=== PATIENT | female | born 1975 | race Caucasian/White ===

== ENCOUNTER 2016-11-11 17:54 | Observation (INO) | payer MEDICAID ==
[2016-11-11] VITALS (9 sets, daily range): BP systolic 155–198; BP diastolic 83–112; PULSE 85–108; RESP 17–18; TEMP 98.1–98.2; O2SAT 98–100
[~2016-11-11] VITALS: Ht 167.6 cm; Wt 106.5 kg
[~2016-11-11 17:54] MED LIST: AMLO5TAB96 PO; BISA5TAB PO; FLOVENT110 MCG/A INH; GLUCTAB PO; GLYB1TAB51 PO; IBUP800T23 PO; LEVA500T33 PO; PRED10PA PO; SYNT25TA PO; THEO200T11 PO; [UNRECOGNIZED DRUG - REMARK] PO
[2016-11-11 18:13] LABS: MEAN CORPUSCULAR HGB CONC 29.1 % (32.0-36.0)
--- NOTE | 2016-11-11 18:32 | PD ---
HPI Chief Complaint: Cardiac Complaint Time Seen by Provider: 18:27 Travel History International Travel<30 days: No Contact w/Intl Traveler<30days: No Traveled to known affect area: No History of Present Illness HPI 41-year-old female presents to the emergency department for evaluation of headache, blurred vision, nausea that started approximately 2 months ago. However, she states has been worse for the past 3-4 days. She also reports palpitations and chest tightness has been intermittent for several years, but worsening lately. She states this is worst at night when she lays down. She states last time she had it was in her left chest last night. She had no radiation of the pain at that time. She does report associated shortness of breath. Patient states the last time she felt like this she needed a blood transfusion. She states her hemoglobin was 5.6 and 2013. She states they were unable to find source of bleeding. She states 2 years ago she had her hemoglobin checked8.6. She denies it being checked since. She denies any fevers. She does report nausea, no vomiting or diarrhea. Patient denies any blood in her stool. She does report a history of a tubal ligation and a cyst on her ovary being removed. She has a past medical history of anemia, diabetes , hypertension, hypothyroidism, vitamin D deficiency. She is not currently on any medications. She denies any cough, tobacco, drug use. She denies any recent surgeries or travel. No leg edema. No hemoptysis. She is not currently on control. She denies a history DVT/PE. FORMERLY [facility] Past Medical History Cardiovascular Problems: No Diabetes: Yes (type 2 ) Genitourinary: No Musculoskeletal: No Neurologic: No Reproductive: No Respiratory: No ?: Not LMP: 11/16/2016 Past Surgical History Gynecologic Surgery: Yes Social History Alcohol Use: No Tobacco Use: No Substance Use: No Allergies-Medications (Allergen,Severity, Reaction): Coded Allergies: No Known Allergies (Unverified , 11/11/16) Reported Meds & Prescriptions Reported Meds & Active Scripts Active No Active Prescriptions or Reported Medications Review of Systems Except as stated in HPI: all other systems reviewed are Neg Physical Exam Narrative GENERAL: Well-nourished, well-developed female patient, ambulatory. Afebrile. SKIN: Focused skin assessment warm/dry. HEAD: Normocephalic. Atraumatic. EYES: No scleral icterus. No injection or drainage. NECK: Supple, trachea midline. No JVD or lymphadenopathy. CARDIOVASCULAR: Regular rate and rhythm without murmurs, gallops, or rubs. Bilateral radial and pedal pulses 2+. RESPIRATORY: Breath sounds equal bilaterally. No accessory muscle use. Lungs sounds are clear to auscultation. GASTROINTESTINAL: Abdomen soft, non-tender, nondistended. No abdominal pain to palpation. MUSCULOSKELETAL: No cyanosis, or edema. BACK: Nontender without obvious deformity. No CVA tenderness. RECTAL EXAM: No masses or tenderness, stool is brown. Hemoccult is negative. This was done with RN at bedside. Data Data Last Documented VS Vital Signs Date Time Temp Pulse Resp B/P Pulse Ox O2 Delivery O2 Flow Rate FiO2 11/11/16 19:12 90 18 165/92 98 Room Air 11/11/16 17:56 98.2 Orders Electrocardiogram (11/11/16 18:11) Complete Blood Count With Diff (11/11/16 18:11) Chest, Single Ap (11/11/16 18:11) Iv Access Insert/Monitor (11/11/16 18:11) Ecg Monitoring (11/11/16 18:11) Oxygen Administration (11/11/16 18:11) Oximetry (11/11/16 18:11) Magnesium (Mg) (11/11/16 18:25) Type And Screen (11/11/16 18:25) Act Partial Throm Time (Ptt) (11/11/16 18:25) Prothrombin Time / Inr (Pt) (11/11/16 18:25) Ct Brain W/O Iv Contrast(Rout) (11/11/16 ) Basic Metabolic Panel (Bmp) (11/11/16 18:35) Ckmb (Isoenzyme) Profile (11/11/16 18:35) Troponin I (11/11/16 18:35) Red Blood Cells (Rbc) (11/11/16 20:07) Blood Product Administration .UPON TRANSFUSION (11/11/16 20:07) Sodium Chlor 0.9% 250 Ml Inj (Ns 250 Ml (11/11/16 20:15) Vital Signs (Adult) CHUCKY.Q4H (11/11/16 20:35) Iron/Tibc Profile (11/11/16 20:35) Ferritin (4/6/17 20:35) Diet 1800 Ada Cons Carb (11/12/16 Breakfast) Blood Glucose Goal (Criteria) (11/11/16 20:35) Hypoglycemia 51 - 69 Mg/Dl (11/11/16 20:35) Hypoglycemia 50 Mg/Dl Or < (11/11/16 20:35) Notify Dr: Other (11/11/16 20:35) Dextrose 50% In Orion (Vial) Inj (D50w (Vi (11/11/16 20:45) Glucagon Inj (Glucagon Inj) (11/11/16 20:45) Low Novolog Scale (11/11/16 21:00) Hemoglobin (Hgb) (11/12/16 06:00) Hematocrit (Hct) (11/12/16 06:00) Labs Laboratory Tests Test 11/11/16 11/11/16 11/11/16 18:35 18:45 20:07 Prothrombin Time 11.1 SEC Prothromb Time International 1.0 RATIO Ratio Activated Partial 25.9 SEC Thromboplast Time Sodium Level 138 MEQ/L Potassium Level 3.9 MEQ/L Chloride Level 103 MEQ/L Carbon Dioxide Level 27.0 MEQ/L Anion Gap 8 MEQ/L Blood Urea Nitrogen 8 MG/DL Creatinine 0.77 MG/DL Estimat Glomerular Filtration 82 ML/MIN Rate Random Glucose 237 MG/DL Calcium Level 8.5 MG/DL Magnesium Level 1.6 MG/DL Total Creatine Kinase 63 U/L Troponin I LESS THAN 0.02 NG/ML Blood Type O POSITIVE Antibody Screen NEGATIVE Blood Bank Comment White Blood Count 7.3 TH/MM3 Red Blood Count 4.20 MIL/MM3 Hemoglobin 7.2 GM/DL Hematocrit 24.7 % Mean Corpuscular Volume 58.8 FL Mean Corpuscular Hemoglobin 17.1 PG Mean Corpuscular Hemoglobin 29.1 % Concent Red Cell Distribution Width 21.3 % Platelet Count 492 TH/MM3 Mean Platelet Volume 7.7 FL Neutrophils (%) (Auto) 71.3 % Lymphocytes (%) (Auto) 19.0 % Monocytes (%) (Auto) 6.7 % Eosinophils (%) (Auto) 2.5 % Basophils (%) (Auto) 0.5 % Neutrophils # (Auto) 5.2 TH/MM3 Lymphocytes # (Auto) 1.4 TH/MM3 Monocytes # (Auto) 0.5 TH/MM3 Eosinophils # (Auto) 0.2 TH/MM3 Basophils # (Auto) 0.0 TH/MM3 CBC Comment AUTO DIFF Crossmatch Leukocyte-Reduced Red Blood Cells MDM Medical Decision Making Medical Screen Exam Complete: Yes Emergency Medical Condition: Yes Medical Record Reviewed: Yes Interpretation(s) Last Impressions Chest X-Ray 11/11/16 1811 Signed Impressions: Service Date/Time: November 18:54 - CONCLUSION: No acute cardiopulmonary disease. Elver Sorto MD Head CT 11/11/16 0000 Signed Impressions: Service Date/Time: , November 11, 2016 18:56 - CONCLUSION: Unremarkable study. Elver Sorto MD Differential Diagnosis Anemia versus migraine headache versus tension type headache versus intracranial abnormality versus anxiety versus electrolyte abnormality versus ACS Narrative Course 41-year-old female presents to the emergency department for evaluation of headache, blurred vision, nausea for several months, but worsening over the past 3-4 days as well as palpitations and tightness in of intermittent for years. Patient is concerned that she may be anemic any blood transfusion due to a history of this. EKG, CBC, BMP, CK, troponin, magnesium, PTT, PTT/INR, type and screen are ordered and pending. Chest x-ray and CT of the brain are ordered and pending. EKG shows sinus rhythm, heart rate 97. CBC shows anemia with hemoglobin 7.2, hematocrit 24.7. BMP shows no acute abnormality. Magnesium is 1.6. CK 63. Troponin is less than 0.02. Coags are unremarkable. Chest x-ray shows no acute cardiopulmonary disease. CT of the brain is unremarkable. Patient will be admitted for 23 observation for symptomatic anemia. Hemoccult is negative. Patient will be given 1 unit PRBCs. Residents are paged for admission. Dr. Jensen accepted admission. [facility] Point of Care Internal Pos. & Neg. Controls: Passed Fecal Specimen Occult Blood: Negative Diagnosis Primary Impression: Symptomatic anemia Admitting Information Admitting Physician Requests: Observation Scripts No Active Prescriptions or Reported Meds Mary Ambrose Nov 11, 2016 18:32
[2016-11-11 19:12] LABS: APTT (PATIENT) 25.9 SEC (24.3-30.1); MAGNESIUM 1.6 MG/DL (1.5-2.5); PROTHROMBIN TIME - PATIENT 11.1 SEC (9.8-11.6)
[2016-11-11 19:20] LABS: ANION GAP 8 MEQ/L (5-15); BLOOD UREA NITROGEN 8 MG/DL (7-18); CHLORIDE 103 MEQ/L (98-107); GLOMERULAR FILTRATION RATE 82 ML/MIN (>89); POTASSIUM 3.9 MEQ/L (3.5-5.1); SODIUM (NA) 138 MEQ/L (136-145)
[2016-11-11 19:24] LABS: CREATINE KINASE 63 U/L (26-192)
[2016-11-11 19:32] LABS: AUTOMATED NEUTROPHIL # 5.2 TH/MM3 (1.8-7.7); BASOPHIL % 0.5 % (0.0-2.0); EOSINOPHIL # 0.2 TH/MM3 (0-0.4); EOSINOPHIL % 2.5 % (0.0-4.0); HEMATOCRIT 24.7 % (35.0-46.0); LYMPHOCYTE # 1.4 TH/MM3 (1.0-4.8); MEAN CELL VOLUME 58.8 FL (80.0-100.0); MEAN CORPUSCULAR HEMOGLOBIN 17.1 PG (27.0-34.0); MONO % 6.7 % (0.0-8.0); NEUT % 71.3 % (16.0-70.0); PLATELET COUNT 492 TH/MM3 (150-450); RED CELL DISTRIBUTION WIDTH 21.3 % (11.6-17.2); WHITE BLOOD COUNT 7.3 TH/MM3 (4.0-11.0)
--- NOTE | 2016-11-11 19:47 | RADRPT ---
EXAM DATE/TIME: 11/11/2016 18:56 [facility] COMPARISON: No previous studies available for comparison. INDICATIONS : Cephalgia. RADIATION DOSE: 46.82 CTDIvol (mGy) MEDICAL HISTORY : Diabetes mellitus type 2. SURGICAL HISTORY : None. ENCOUNTER: Initial ACUITY: 2 weeks PAIN SCALE: 8/10 LOCATION: cranial TECHNIQUE: Multiple contiguous axial images were obtained of the head. Using automated exposure control and adj ustment of the mA and/or kV according to patient size, radiation dose was kept as low as reasonably a chievable to obtain optimal diagnostic quality images. FINDINGS: There is no evidence for intracranial hemorrhage, mass effect, mass lesions, edema, or extra-axial fl uid collections. The visualized bony structures appear intact. The ventricles are normal size for t he patient's age. There are no signs of acute infarction for technique. CONCLUSION: Unremarkable study. Elver Sorto MD on November 11, 2016 at 19:45 Board Certified Radiologist. This report was verified electronically.
[2016-11-11 19:52] LABS: HEMO FLAGS AUTO DIFF
--- NOTE | 2016-11-11 20:03 | RADRPT ---
EXAM DATE/TIME: 11/11/2016 18:54 [facility] COMPARISON: No previous studies available for comparison. INDICATIONS : Short of breath. MEDICAL HISTORY : None. SURGICAL HISTORY : None. ENCOUNTER: Initial ACUITY: 1 month PAIN SCORE: 0/10 LOCATION: Bilateral chest FINDINGS: The lungs are clear without infiltrate, nodule, or mass. There is no appreciable pleural effusion fo r technique. Heart and mediastinum are unremarkable. CONCLUSION: No acute cardiopulmonary disease. Elver Sorto MD on November 11, 2016 at 20:01 Board Certified Radiologist. This report was verified electronically.
[2016-11-11] MEDS ORDERED: SODIUM CHLOR 0.9% 250 ML INJ 250 ML IV ONE (20:15)
[2016-11-11] MEDS ORDERED: DEXTROSE 50% IN WATER 50 ML VIAL(D50) IV PUSH PRN (20:45)
[2016-11-11] MEDS ORDERED: GLUCAGON 1 MG/ML VIAL OTHER PRN (20:45)
[2016-11-11 21:28] LABS: TEARDROP RBCS 2+ (NORMAL)
[2016-11-11 21:29] LABS: OVALOCYTES 1+ (NORMAL)
[2016-11-11 21:30] LABS: KERATOCYTES OCC (NORMAL); TARGET CELLS 1+ (NORMAL)
[2016-11-11 21:31] LABS: PLATELET ESTIMATE SMEAR HIGH (NORMAL); PLATELET MORPHOLOGY NORMAL (NORMAL); SCAN/DIFF AUTO DIFF CONFIRMED
[2016-11-11 21:36] LABS: FERRITIN 2 NG/ML (8-252); TRANSFERRIN IRON PROFILE 393 MG/DL (200-360)
[2016-11-11] MEDS: INSULIN ASPART SUPPLEMENTAL SCALE SQ SCH (21:47)
--- NOTE | 2016-11-12 01:38 | HHI.HP ---
[facility] Unknown Admission Diagnosis symptomatic anemia Diagnoses: (1) Symptomatic anemia Diagnosis: Principal Chief Complaint: fatigue Travel History International Travel<30 Days: No Contact w/Intl Traveler <30 Da: No Traveled to Known Affected Are: No History of Present Illness patient is a 41 y/o female with history of anemia who presented to ER with fatigue. she says that she's been getting tired easily and it seems that it's getting worse. she's complaining of exertional dyspnea and on and off palpitations. she says that she has craving for ice. she has a history of anemia and had blood transfusion few years ago. she says that she has irregular periods although she's not having heavy bleeding each time.she denies any rectal bleed or black stools. she says that she's in the process of seeing a construction director. of note the patient has a history of diabetes and hypertension but currently not taking any medications. Review of Systems Constitutional: COMPLAINS OF: Fatigue, DENIES: Fever, Weight loss, Chills, Night Sweats Eyes: DENIES: Blurred vision, Diplopia, Vision loss, Double Vision Ears, nose, mouth, throat: DENIES: Tinnitus, Vertigo, Throat pain, Epistaxis Respiratory: DENIES: Apneas, Cough, Snoring, Wheezing, Hemoptysis, Sputum production, Shortness of breath Cardiovascular: COMPLAINS OF: Palpitations, Dyspnea on Exertion, DENIES: Chest pain, Syncope, PND, Lower Extremity Edema, Orthopnea, Claudication Gastrointestinal: DENIES: Abdominal pain, Black stools, Bloody stools, Constipation, Diarrhea, Nausea, Vomiting, Difficulty Swallowing, Anorexia Genitourinary: DENIES: Urinary frequency, Urgency, Hematuria, Dysuria Musculoskeletal: DENIES: Joint pain, Muscle aches, Stiffness, Joint Swelling Integumentary: DENIES: Rash Neurologic: DENIES: Abnormal gait, Headache, Localized weakness, Paresthesias, Seizures, Speech Problems, Tremor, Poor Balance Psychiatric: DENIES: Anxiety, Confusion, Mood changes, Depression, Hallucinations, Agitation, Suicidal Ideation, Homicidal Ideation, Delusions Past Family Social History Past Medical History anemia hypertension diabetes mellitus hypothyroidism Past Surgical History tubal ligation Reported Medications none Allergies: Coded Allergies: No Known Allergies (Unverified , 11/11/16) Active Ordered Medications Current Medications Sodium Chloride (NS 250 ml Inj) 250 ml @ 15 mls/hr ONCE ONCE IV Last administered on 11/11/16 22:21; Start 11/11/16 at 20:15; Stop 11/12/16 at 12:54 Dextrose (D50w (Vial) Inj) 25 ml UNSCH PRN IV PUSH HYPOGLYCEMIA-SEE COMMENTS; Start 11/11/16 at 20:45 Glucagon (Glucagon Inj) 1 mg UNSCH PRN OTHER HYPOGLYCEMIA-SEE COMMENTS; Start 11/11/16 at 20:45 Insulin Aspart (NovoLOG SUPPLEMENTAL SCALE) 1 ACHS SLIDING SCALE SQ Last administered on 11/11/16 21:47; Start 11/11/16 at 21:00 Family History diabetes. Social History no smoking or drinking. Physical Exam Vital Signs Vital Signs Date Time Temp Pulse Resp B/P Pulse Ox O2 Delivery O2 Flow Rate FiO2 11/11/16 23:30 98.2 89 17 155/96 98 Room Air 11/11/16 23:05 98.1 85 18 173/94 99 Room Air 11/11/16 22:45 98.2 90 18 161/89 100 Room Air 11/11/16 22:32 98.1 93 18 162/87 98 Room Air 11/11/16 22:25 89 18 181/83 99 Room Air 11/11/16 22:15 98.1 90 18 187/97 98 Room Air 11/11/16 19:12 90 18 165/92 98 Room Air 11/11/16 18:30 102 18 174/112 99 Room Air 11/11/16 18:20 96 18 100 Room Air 11/11/16 17:56 98.2 108 17 198/105 98 Physical Exam GENERAL: This is a well-nourished, well-developed patient, in no apparent distress. SKIN: No rashes, ecchymoses or lesions. Cool and dry. HEAD: Atraumatic. Normocephalic. No temporal or scalp tenderness. EYES: Pupils equal round and reactive. Extraocular motions intact. No scleral icterus. No injection or drainage. ENT: Nose without bleeding, purulent drainage or septal hematoma. Throat without erythema, tonsillar hypertrophy or exudate. Uvula midline. Airway patent. NECK: Trachea midline. No JVD or lymphadenopathy. Supple, nontender, no meningeal signs. CARDIOVASCULAR: Regular rate and rhythm without murmurs, gallops, or rubs. RESPIRATORY: Clear to auscultation. Breath sounds equal bilaterally. No wheezes , rales, or rhonchi. GASTROINTESTINAL: Abdomen soft, non-tender, nondistended. No hepato-splenomegaly , or palpable masses. No guarding. MUSCULOSKELETAL: Extremities without clubbing, cyanosis, or edema. No joint tenderness, effusion, or edema noted. No calf tenderness. Negative Homans sign bilaterally. NEUROLOGICAL: Awake and alert. Cranial nerves II through XII intact. Motor and sensory grossly within normal limits. Five out of 5 muscle strength in all muscle groups. Normal speech. Laboratory Laboratory Tests Test 11/11/16 11/11/16 11/11/16 11/11/16 18:35 18:45 20:07 20:15 Prothrombin Time 11.1 Prothromb Time International 1.0 Ratio Activated Partial 25.9 Thromboplast Time Sodium Level 138 Potassium Level 3.9 Chloride Level 103 Carbon Dioxide Level 27.0 Anion Gap 8 Blood Urea Nitrogen 8 Creatinine 0.77 Estimat Glomerular Filtration 82 Rate Random Glucose 237 Calcium Level 8.5 Magnesium Level 1.6 Iron Level 14 Total Iron Binding Capacity 550 Percent Iron Saturation 2.5 Ferritin 2 Total Creatine Kinase 63 Troponin I LESS THAN 0.02 Blood Type O POSITIVE O POSITIVE Antibody Screen NEGATIVE Blood Bank Comment White Blood Count 7.3 Red Blood Count 4.20 Hemoglobin 7.2 Hematocrit 24.7 Mean Corpuscular Volume 58.8 Mean Corpuscular Hemoglobin 17.1 Mean Corpuscular Hemoglobin 29.1 Concent Red Cell Distribution Width 21.3 Platelet Count 492 Mean Platelet Volume 7.7 Neutrophils (%) (Auto) 71.3 Lymphocytes (%) (Auto) 19.0 Monocytes (%) (Auto) 6.7 Eosinophils (%) (Auto) 2.5 Basophils (%) (Auto) 0.5 Neutrophils # (Auto) 5.2 Lymphocytes # (Auto) 1.4 Monocytes # (Auto) 0.5 Eosinophils # (Auto) 0.2 Basophils # (Auto) 0.0 CBC Comment AUTO DIFF Differential Comment AUTO DIFF CONFIRMED Platelet Estimate HIGH Platelet Morphology Comment NORMAL Target Cells 1+ Tear Drop Cells 2+ Ovalocytes 1+ Keratocytes OCC Crossmatch Leukocyte-Reduced Red Blood Cells Result Diagram: 11/11/16 1845 11/11/16 1835 Imaging Last Impressions Chest X-Ray 11/11/16 1811 Signed Impressions: Service Date/Time: November 18:54 - CONCLUSION: No acute cardiopulmonary disease. Elver Sorto MD Head CT 11/11/16 0000 Signed Impressions: Service Date/Time: November 18:56 - CONCLUSION: Unremarkable study. Elver Sorto MD Assessment and Plan Assessment and Plan A/P - symptomatic anemia; iron deficiency due to abnormal uterine bleeding PRBC transfusion in process- will repeat H/H post transfusion and start on ferrous sulfate- f/u with [employer] as outpatient -diabetes mellitus; accu-check with SSI- will consider starting metformin upon discharge -hypertension; start lisinopril - f/u as outpatient with PCP -hypothyroidism; f/u as outpatient -DVT prophylaxis with SCD's Discussed Condition With ER and the patient. Jhonathan Durham MD Nov 12, 2016 01:38
[2016-11-12 02:45] VITALS: BP 157/81; PULSE 94; RESP 18; TEMP 98.4; O2SAT 95
[2016-11-12] MEDS: INSULIN ASPART SUPPLEMENTAL SCALE SQ SCH (06:22)
[2016-11-12 07:05] LABS: HEMATOCRIT 25.3 % (35.0-46.0)
[2016-11-12 08:28] VITALS: BP 174/96; PULSE 92; RESP 18; TEMP 97.7; O2SAT 94
--- NOTE | 2016-11-12 08:38 | HHI.PR ---
Subjective Remarks Follow up for anemia. The patient states she came to the hospital because she was feeling fatigued, weak, shortness of breath for the past week now. She reports ice craving for many years now. Today s/p transfusion she is feeling better. She recently had an appointment with after school program teacher Dr. Jennings on 11/08 however this was cancelled because she hasn't seen a PCP. Objective Vitals Vital Signs Date Time Temp Pulse Resp B/P Pulse Ox O2 Delivery O2 Flow Rate FiO2 11/12/16 08:28 97.7 92 18 174/96 94 11/12/16 02:45 98.4 94 18 157/81 95 11/12/16 02:45 98.4 94 18 157/81 95 11/11/16 23:30 98.2 89 17 155/96 98 Room Air 11/11/16 23:05 98.1 85 18 173/94 99 Room Air 11/11/16 22:45 98.2 90 18 161/89 100 Room Air 11/11/16 22:32 98.1 93 18 162/87 98 Room Air 11/11/16 22:25 89 18 181/83 99 Room Air 11/11/16 22:15 98.1 90 18 187/97 98 Room Air 11/11/16 19:12 90 18 165/92 98 Room Air 11/11/16 18:30 102 18 174/112 99 Room Air 11/11/16 18:20 96 18 100 Room Air 11/11/16 17:56 98.2 108 17 198/105 98 Result Diagram: 11/12/16 0612 11/11/16 1835 Imaging Last Impressions Chest X-Ray 11/11/16 1811 Signed Impressions: Service Date/Time: November 18:54 - CONCLUSION: No acute cardiopulmonary disease. Elver Sorto MD Head CT 11/11/16 0000 Signed Impressions: Service Date/Time: November 18:56 - CONCLUSION: Unremarkable study. Elver Sorto MD Objective Remarks GENERAL: Well-nourished, well-developed obese female patient in [facility]. SKIN: Warm and dry. No rash. HEENT: Normocephalic. Atraumatic. Pupils equal and round. No scleral icterus. No injection or drainage. Mucous membranes pink and moist. NECK: Supple. Trachea midline. CARDIOVASCULAR: Regular rate and rhythm. S1, S2 noted. No murmur appreciated. RESPIRATORY: No accessory muscle use. Clear to auscultation. Breath sounds equal bilaterally. GASTROINTESTINAL: Abdomen soft, non-tender, nondistended. Normoactive bowel sounds x4. MUSCULOSKELETAL: No obvious deformities. Extremities without clubbing, cyanosis , or edema. NEUROLOGICAL: Awake and alert. No obvious cranial nerve deficits. Motor grossly within normal limits. Normal speech. PSYCHIATRIC: Appropriate mood and affect; insight and judgment normal. Medications and IVs Current Medications Medications (Trade) Dose Ordered Sig/Reginaldo Route Start Time Stop Time Status Last Admin (NS 250 ml Inj) 250 ml @ 15 mls/hr ONCE ONCE IV 11/11/16 20:15 11/12/16 12:54 11/11/16 22:21 (D50w (Vial) Inj) 25 ml UNSCH PRN IV PUSH 11/11/16 20:45 (Glucagon Inj) 1 mg UNSCH PRN OTHER 11/11/16 20:45 (Prinivil) 5 mg DAILY PO 11/12/16 09:00 (Ferrous Sulfate) 325 mg BID PO 11/12/16 09:00 Urinary Catheter: No Vascular Central Line Catheter: No A/P Problem List: (1) Symptomatic anemia ICD Code: D64.9 Status: Acute Assessment and Plan 41-year-old female with: - symptomatic anemia: iron deficiency due to abnormal uterine bleeding. Hgb 7.2 upon arrival. Iron studies consistent with severe iron deficiency. S/p 1u PRBC transfusion. Repeat Hgb 8.0. Started on ferrous sulfate tid, counselled on taking with Vitamin C and stool softeners. Follow up with [facility] and hematology as outpatient. Discussed extensively with the patient on obtaining outpatient f/ups , she has had difficulty with her insurance, discussed over the phone with the patient's [id number] who works for [employer], will try to get f/up with Dr. Lackey. Likely needs outpatient IV Venofer infusions. Patient feeling better, stable for discharge. -diabetes mellitus; accu-check with SSI- started metformin 500mg po bidpc upon discharge. Check HgbA1c. -hypertension: start lisinopril 10mg daily and Norvasc 5mg daily - f/u as outpatient with PCP. -hypothyroidism: f/u as outpatient with PCP -DVT prophylaxis with SCD's Written by Anahi Morocho, acting as scribe for Dr. Onofre on 11/12/16 at 09:56. All or portions of this note were transcribed by IMER Hernandez. I , Dr. David Onofre personally performed the history, physical exam, and medical decision making; and confirmed the accuracy of the information in the transcribed note. Authenticated by Dr. David Onofre on 11/12/16 at 23:55. Discharge Planning Discharge patient to home Condition on discharge: Improved Heart Healthy Diet as tolerated Ad Ann-Marie activity Rx written: ferrous sulfate tid, lisinopril 10mg qd, norvasc 5mg qd, metformin 500mg bidpc Follow-up with primary care physician, hematology, and gynecology Anahi Morocho PA-C Nov 12, 2016 08:38 Hannah Onofre DO Nov 12, 2016 23:55
[2016-11-12] MEDS ORDERED: FERR325T PO (08:51)
[2016-11-12] MEDS ORDERED: LISI10TA3 PO (09:00)
[2016-11-12] MEDS ORDERED: LISINOPRIL 5 MG TAB PO SCH ×2 (09:00)
[2016-11-12] MEDS ORDERED: FERROUS SULFATE 325 MG (65 MG ELEMENTAL IRON) TAB PO SCH ×2 (09:00)
[2016-11-12] MEDS ORDERED: amLODIPine BESYLATE 5 MG TAB PO SCH (09:00)
[2016-11-12] MEDS ORDERED: AMLO5 PO (09:00)
[2016-11-12] MEDS ORDERED: METF500T PO (09:00)
--- NOTE | 2016-11-12 09:01 | HHI.DCPOC ---
Discharge Care Plan Diagnosis: (1) Symptomatic anemia (2) Abnormal uterine bleeding (3) HTN (hypertension) (4) Diabetes Goals to Promote Your Health * To prevent worsening of your condition and complications * To maintain your health at the optimal level Directions to Meet Your Goals Take your medications as prescribed Follow your dietary instruction Follow activity as directed Keep your appointments as scheduled Take your immunizations and boosters as scheduled If your symptoms worsen call your PCP, if no PCP go to Urgent Care Center or Emergency Room Smoking is Dangerous to Your Health. Avoid second hand smoke Call the 24-hour hour crisis hotline for domestic abuse at Anahi Morocho PA-C Nov 12, 2016 09:00
--- NOTE | 2016-11-12 13:39 | EKG ---
Date Performed: 11/11/2016 Time Performed: 18:46:39 PTAGE: 41 years EKG: Sinus rhythm NORMAL ECG NO PREVIOUS TRACING DOCTOR: Vladislav Da Silva Interpretating Date/Time 02/02/2017 14:14:17
[2016-11-12 16:45] LABS: HEMOGLOBIN A1a 1.2 %; HEMOGLOBIN A1b 2.3 %; HEMOGLOBIN Ao 79.4 %; HEMOGLOBIN LA1C 2.9 %; HEMOGLOBIN P3 4.5 %
[2016-12-01] MEDS ORDERED: METF1000 PO (15:48)
[2016-12-01] MEDS ORDERED: LISI-515 PO (15:48)
== END 2016-11-12 11:27 | disposition home or self-care (01) ==
LOC: NEPD 17:54 → NEDA 20:41 → MERGE 20:41 → NEPGCP 23:51
PROVIDERS: ADMIT Hospitalist; ATTEND Hospitalist
DX: D50.9 Iron deficiency anemia, unspecified (principal); N93.9 Abnormal uterine and vaginal bleeding, unspecified; E11.9 Type 2 diabetes mellitus without complications; I10 Essential (primary) hypertension; E03.9 Hypothyroidism, unspecified; Z79.4 Long term (current) use of insulin
CPT/HCPCS: 36430; 70450; 71010; 80048; 82550; 82728; 82948; 83036; 83540; 83550; 83735; 84443; 84484; 85014; 85018; 85025; 85610; 85730; 86850; 86900; 86901; 86920; 93005; 99285; G0378; J1815; J7050; P9016

== ENCOUNTER → 2017-04-13 | Day surgery (SDC) | payer MEDICAID ==
--- NOTE | 2017-04-12 10:33 | MH ---
cc: MAIRA ANTONIA ORLANDO MD DATE OF ADMISSION: 04/13/2017 ADMITTING DIAGNOSIS: This patient is a 41 old white female. She is a 4, para 3, is being admitted to [facility] for treatment of hypermenorrhea and anemia. HISTORY OF PRESENT ILLNESS The patient brought into our practice. She was seen and worked up for her hypermenorrhea by first doing a transvaginal ultrasound which revealed a small submucosal fibroid. We then did an endometrial biopsy, which was negative for any lesions. Then we offered her the option of undergoing endometrial ablation. The risks and the failure rate, given her small submucosal fibroid [facility]. She opted to go with this procedure. PAST MEDICAL HISTORY: Medical history is significant that she is both diabetic and hypertensive. MEDICATIONS: She is on lisinopril and metformin. SOCIAL HISTORY She is a nonsmoker and nondrinker. ALLERGIES SULFA REVIEW OF SYSTEMS Her review of systems essentially noncontributory. PHYSICAL EXAMINATION IN GENERAL: The patient is a well-developed, well-nourished in no acute distress. VITAL SIGNS: Her blood pressure was 122/80, pulse was 95. HEAD, EYES, EARS, NOSE, AND THROAT: Negative. CHEST: Her chest was clear to auscultation. CARDIOVASCULAR SYSTEM: Her Cardiovascular examination revealed a regular rate. ABDOMEN: Abdomen was soft. Bowel sounds were positive. PELVIS: There is normal external genitalia which was within limits. The patients uterus was slightly enlarged in size. There is no adnexal masses palpable. There is no uterine tenderness. EXTREMITIES: The extremities revealed no cyanosis, clubbing or edema. NEUROPSYCHIATRIC: The patient is oriented times three, and showed no gross neurocranial deficit. ASSESSMENT AND PLAN: Question on admission is hypermenorrhea, anemia and small fibroid uterus and the plan was for endometrial ablation. MD ROBE Yuen/sam /9:50 AM /9:56 AM
[~2017-04-13] VITALS: Ht 167.6 cm; Wt 108.7 kg
[~2017-04-13] MED LIST changes: +*ONDANSETRON 4 MG VIAL PERIprocedural Use ONLY ONE; +ACETAMINOPHEN 1000 MG/100 ML 100 ML IV ONE; -AMLO5TAB96 PO; -BISA5TAB PO; +CHLORHEXIDINE GLUCONATE 2 % 1 PACK (2 CLOTHS) TOPICAL PRN; +DO NOT ADM ANY ANTICOAGULANT DRUGS PRN; -FLOVENT110 MCG/A INH; -GLUCTAB PO; -GLYB1TAB51 PO; +HYDROmorphone HCL PF 2 MG/ML VIAL ONE; -IBUP800T23 PO; +INSULIN HUMAN REGULAR 1,000 UNITS/10 ML VIAL SQ PRN; +KETOROLAC TROMETHAMINE 30 MG/ML (IVP) VIAL ONE; +LACTATED RINGER'S 1000 ML IV PRN; -LEVA500T33 PO; +LISI-515 PO; +METF1000 PO; +METOPROLOL TARTRATE 25 MG TAB PO PRN; +NEOSTIGMINE 3 MG/3 ML SYR IV ONE; +ONDANSETRON HCL 4 MG/2 ML VIAL IV PUSH ONE; +POVIDONE IODINE 5% (ANTISEPSIS KIT) 4 APPLICATIONS EACH NARE PRN; -PRED10PA PO; +PROPOFOL 200 MG/20 ML AMP IV ONE; +SODIUM CHLORID 0.9% 500 ML IV PRN; -SYNT25TA PO; -THEO200T11 PO; -[UNRECOGNIZED DRUG - REMARK] PO; +ceFAZolin 2 GM PREMIX 50 ML IV SCH; +oxyCODONE/ACETAMINOPHEN 5 MG/325 MG TAB PO PRN
--- NOTE | 2017-04-13 08:41 | MP ---
cc: ERNESTO STEINBERG MD DATE OF SURGERY: April 13, 2017 PREOPERATIVE DIAGNOSIS Hypermenorrhea and anemia and fibroid uterus. POSTOPERATIVE DIAGNOSIS Hypermenorrhea and anemia and fibroid uterus. OPERATION Dilatation and NovaSure ablation and post-procedural hysteroscopy. SURGEON Dr. Steinberg. ANESTHESIA General. ESTIMATED BLOOD LOSS Minimal. FINDINGS Findings were consistent with a slightly enlarged uterine cavity. COMPLICATIONS None. 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 PROCEDURE The patient was prepped and draped in dorsal lithotomy position. Weighted speculum was placed in the posterior vaginal wall and the anterior lip of the cervix was grasped with a single-tooth tenaculum. The cervix was dilated up using Abran dilators and a NovaSure ablation unit was inserted in the endometrial cavity after the cavity was measured to approximately 4-1/2 cm. Ablation unit was then deployed with the cavity was measured at approximately 3-1/2 cm. It was set on the heat cycle until the heat cycle was finished and then the NovaSure ablation unit was removed. A hysteroscope was then inserted in the endometrial cavity to ensure that all quadrants of the uterine cavity were ablated and they were. It was then removed, tenaculum and speculum were removed and the patient was returned to the recovery room in stable condition. Ernesto Steinberg MD JSG/TLL /7:52 AM /8:15 AM
[2017-04-13 09:21] VITALS: BP 164/77; PULSE 95; RESP 20; TEMP 98.3; O2SAT 98
== END | disposition home or self-care (01) ==
LOC: HSDC 05:34
PROVIDERS: ATTEND Obstetrics & Gynecology
DX: D25.0 Submucous leiomyoma of uterus (principal); D64.9 Anemia, unspecified; N92.0 Excessive and frequent menstruation with regular cycle; I10 Essential (primary) hypertension; E11.9 Type 2 diabetes mellitus without complications; K21.9 Gastro-esophageal reflux disease without esophagitis; J45.909 Unspecified asthma, uncomplicated; E66.9 Obesity, unspecified; Z68.38 Body mass index [BMI] 38.0-38.9, adult; Z79.84 Long term (current) use of oral hypoglycemic drugs; Z79.899 Other long term (current) drug therapy
CPT/HCPCS: 00952; 58563; J0131; J0690; J1885; J2405; J2710; J3010; J7120; J1170